=== PATIENT | male | born 1955 | race Caucasian/White ===

== ENCOUNTER 2022-01-20 22:44 | Outpatient (CLI) | payer MEDICARE, OTHER | END 2022-01-20 23:59 | disposition critical access hospital (66) | LOC: EMS 22:44 | DX: S09.90XA Unspecified injury of head, initial encounter (principal); R41.0 Disorientation, unspecified; W01.198A Fall on same level from slipping, tripping and stumbling with subsequent striking against other object, initial encounter; Y92.009 Unspecified place in unspecified non-institutional (private) residence as the place of occurrence of the external cause | CPT/HCPCS: A0425; A0427 ==

== ENCOUNTER 2022-01-20 22:57 | Emergency (ER) | payer MEDICARE, OTHER ==
--- NOTE | 2022-01-20 23:40 | ED Physician Documentation ---
PD HPI HEAD INJURY - Stated complaint Stated Complaint: GLF/HEAD INJ - Chief complaint Chief Complaint: Trauma Hd/Nk - History obtained from History obtained from: Patient, EMS - Additional information Additional information: Patient is a 67-year-old male with a history significant for diabetes, atrial fibrillation on Eliquis presenting for evaluation after head injury. Patient was at home with his and had gotten up to open the door to let the dogs back and when he fell backwards hitting his head on a windowsill. Per his he had 1 minute of LOC.There was no seizure activity. EMS was activated. Patient denies pain or injury. He did admit to consuming half a bottle of wine tonight which per his is normal for him. Patient denies ever having withdrawal symptoms when he has not consumed alcohol.He reports being compliant with his medications although he is unsure if he has had his evening dose of medications.Patient denies headache, chest pain, difficulty breathing. Review of Systems Constitutional: denies: Fever Nose: denies: Congestion Cardiac: denies: Chest pain / pressure, Palpitations Respiratory: denies: Dyspnea, Cough GI: denies: Abdominal Pain, Vomiting : denies: Dysuria Skin: denies: Rash Musculoskeletal: denies: Neck pain Neurologic: reports: Syncope, Head injury. denies: Headache PD PAST MEDICAL HISTORY - Past Medical History Past Medical History: Yes Cardiovascular: Congestive heart failure, Hypertension, High cholesterol, Atrial fibrillation Endocrine/Autoimmune: Type 2 diabetes - Allergies Allergies/Adverse Reactions: Allergies Allergy/AdvReac Type Severity Reaction Status Date / Time No Known Drug Allergies Allergy Verified 01/20/22 23:04 - Social History Does the pt smoke?: No Smoking Status: Never smoker Does the pt drink ETOH?: Yes ETOH Use: Wine PD ED PE NORMAL - General General: Alert and oriented X 3, No acute distress, Well developed/nourished - HEENT HEENT: Atraumatic, PERRL, EOMI, Moist mucous membranes - Neck Neck: Supple, no meningeal sign, No bony TTP. No: C-Spine cleared by NEXUS criteria (Due to reports of alcohol use) - Cardiac Cardiac: No murmur, Strong equal pulses, Other (Irregularly irregular) - Respiratory Respiratory: No respiratory distress, Clear bilaterally - Abdomen Abdomen: Normal bowel sounds, Soft, Non tender - Back Back: No spinal TTP - Derm Derm: Normal color, Warm and dry - Extremities Extremities: No edema, No calf tenderness / cord - Neuro Neuro: Alert and oriented X 3, rag boiler 2-12 intact, No motor deficit, Normal speech Eye Opening: Spontaneous Motor: Obeys Commands Verbal: Oriented GCS Score: 15 - Psych Psych: Normal mood, Normal affect Results - Vitals Vitals: Vital Signs - 24 hr 01/20/22 01/20/22 01/21/22 23:04 23:40 00:03 Temperature 36.6 C Heart Rate 108 H 110 H Heart Rate [ 149 H Sitting] Heart Rate [ Standing] Heart Rate [ 107 H Supine] Respiratory 19 16 Rate Blood Pressure 136/87 H 136/87 H Blood Pressure 139/98 H [Sitting] Blood Pressure [Standing] Blood Pressure 149/91 H [Supine] O2 Saturation 95 98 01/21/22 01/21/22 01/21/22 00:04 00:10 00:30 Temperature Heart Rate 108 H 103 H Heart Rate [ Sitting] Heart Rate [ 136 H Standing] Heart Rate [ Supine] Respiratory 19 18 Rate Blood Pressure 126/81 H 132/75 H Blood Pressure [Sitting] Blood Pressure 136/82 H [Standing] Blood Pressure [Supine] O2 Saturation 96 96 01/21/22 01:07 Temperature Heart Rate 103 H Heart Rate [ Sitting] Heart Rate [ Standing] Heart Rate [ Supine] Respiratory 18 Rate Blood Pressure 126/93 H Blood Pressure [Sitting] Blood Pressure [Standing] Blood Pressure [Supine] O2 Saturation 95 Oxygen O2 Source Room air - EKG (time done) 1209 Rate: Rate (enter#) (103) Rhythm: Atrial fibrillation Riddle: Normal Intervals: RBBB Ischemia: No: ST elevation c/w ischemia Compare to prior EKG: Old EKG unavailable Computer interpretation: Agree with computer - Labs Labs: Laboratory Tests 01/20/22 01/20/22 23:03 23:03 WBC 6.8 RBC 4.40 L Hgb 15.4 Hct 46.7 MCV 106.1 H MCH 35.0 H MCHC 33.0 RDW 13.5 Plt Count 253 MPV 10.8 Neut # (Auto) 4.0 Lymph # (Auto) 1.8 Kimball # (Auto) 0.8 Eos # (Auto) 0.2 Baso # (Auto) 0.1 Absolute Nucleated RBC 0.00 Nucleated RBC % 0.0 Sodium 134 L Potassium 4.0 Chloride 100 L Carbon Dioxide 20 L Anion Gap 14.0 H BUN 23 H Creatinine 0.9 Estimated GFR (MDRD) 84 L Glucose 227 H Calcium 9.0 Total Bilirubin 0.7 AST 23 ALT 20 Alkaline Phosphatase 67 Total Protein 6.5 L Albumin 3.4 Globulin 3.1 Albumin/Globulin Ratio 1.1 PD MEDICAL DECISION MAKING - ED course Complexity details: reviewed results, re-evaluated patient, d/w patient, d/w family ED course: Patient presenting for evaluation after a ground-level fall with head injury and brief LOC. Patient is on blood thinners.Clinically, patient does not appear intoxicated but does admit to alcohol use this evening. CT head and cervical spine were obtained with no acute findings. EKG with A. fib at whichPatient has a history of. Labs also reviewed. Patient denies symptoms to suggest ACS Or pulmonary embolism. No signs of stroke or seizure. Patient was able to ambulate At his baseline. He was encouraged to limit his alcohol use and have close follow-up with his primary care doctor and home economics extension worker. He is aware of return precautions. Departure - Departure Disposition: 01 Home, Self Care Clinical Impression: Head injury, closed, with brief LOC, Chronic atrial fibrillation, Alcohol use Condition: Stable Instructions: ED Head Injury Closed Comments: Matt - You were evaluated after a head injury and fainting. You had a CT scan of your head and your neck done which fortunately did not show any internal injuries.Your EKG shows that you are in atrial fibrillation. At times your heart rate is elevated but appears to be within normal limits when you are resting. Please try and limit your alcohol use as this can cause your atrial fibrillation to be out of control. Please also be sure to take all of your medications as prescribed. Please check your medication box when you go home to make sure you have taken your evening doses. Please be cautious when moving around especially in the setting of alcohol use as it can cause you to be more unsteady. Please have close follow-up with your home economics extension worker and primary care doctor. If it anytime you have any worsening symptoms please return to the emergency department. Discharge Date/Time: 01/21/22 01:17
--- NOTE | 2022-01-21 | CT Report ---
PROCEDURE: HEAD WO INDICATIONS: trauma on eliquis TECHNIQUE: Noncontrast 5 mm thick angled axial sections acquired from the foramen magnum to the vertex. For rad iation dose reduction, the following was used: automated exposure control, adjustment of mA and/or k V according to patient size. COMPARISON: None. FINDINGS: Image quality: Excellent. CSF spaces: There is mild cerebral volume loss with prominence of the ventricles and sulci. Basal ci sterns are patent. There is a small right choroidal fissure cyst Brain: No intracranial hemorrhage, mass, or mass effect. Sloan-white matter interface is preserved. T here are subcortical and periventricular white matter hypodensities consistent with mild chronic smal l vessel ischemic changes. Skull and face: Calvarium and visualized facial bones are intact, without suspicious lesions. Sinuses: Visualized sinuses and mastoids are clear. IMPRESSION: 1. No acute intracranial abnormality. 2. Mild cerebral volume loss and chronic white matter small vessel ischemic changes. Reviewed by: Everton Collier MD on 01/21/2022 12:02 AM PDT Approved by: Everton Collier MD on 01/21/2022 12:02 AM PDT Station ID: [id number]
--- NOTE | 2022-01-21 00:02 | CT Report ---
PROCEDURE: CERVICAL SPINE WO INDICATIONS: trauma/etoh TECHNIQUE: Noncontrast 3 mm thick sections acquired from the skull base to the T4 level. Sagittal and coronal r eformats were then constructed. For radiation dose reduction, the following was used: automated exp osure control, adjustment of mA and/or kV according to patient size. COMPARISON: None. FINDINGS: Image quality: Excellent. Bones: No fractures or subluxation. . There is straightening of the cervical lordosis with anteroli sthesis demonstrated at C3-C4. Multilevel degenerative disc disease demonstrated including moderate t o severe degeneration at C5-C6. There is moderate multilevel facet arthropathy throughout the cervica l spine Visualized superior ribs are intact. Soft tissues: Prevertebral soft tissues are normal in thickness. No paravertebral hematomas. No ap ical pneumothoraces. IMPRESSION: 1. No acute fractures or subluxation. 2. Multilevel degenerative changes of the cervical spine as described. Reviewed by: Everton Collier MD on 01/21/2022 12:04 AM PDT Approved by: Everton Collier MD on 01/21/2022 12:04 AM PDT Station ID: [id number]
[2022-01-21 00:03] LABS: BASOPHILS # (AUTO) 0.1 10^3/uL (0.0-0.1); BASOPHILS % (AUTO) 1.3 %; EOSINOPHILS # (AUTO) 0.2 10^3/uL (0.0-0.7); EOSINOPHILS % (AUTO) 3.1 %; HCT - HEMATOCRIT 46.7 % (42.0-52.0); HGB - HEMOGLOBIN 15.4 g/dL (14.0-18.0); LYMPHOCYTES # (AUTO) 1.8 10^3/uL (1.5-3.5); LYMPHOCYTES % (AUTO) 25.6 %; MEAN CORPUSCULAR VOLUME 106.1 fL (80.0-94.0); MEAN PLATELET VOLUME 10.8 fL (7.4-11.4); MONOCYTES # (AUTO) 0.8 10^3/uL (0.0-1.0); NEUTROPHILS % (AUTO) 58.4 %; PLT - PLATELET COUNT 253 10^3/uL (130-450); RED CELL DISTRIBUTION WIDTH 13.5 % (12.0-15.0); WHITE BLOOD COUNT 6.8 x10^3/uL (4.8-10.8)
[2022-01-21 00:14] LABS: ALBUMIN 3.4 g/dL (3.2-5.5); ALBUMIN/GLOBULIN RATIO 1.1 (1.0-2.2); BILIRUBIN,TOTAL 0.7 mg/dL (0.2-1.0); CREATININE 0.9 mg/dL (0.6-1.2); TOTAL PROTEIN 6.5 g/dL (6.7-8.2)
[2022-01-21] MEDS ORDERED: SODIUM CHLORIDE 0.9% 500 ML IV STA (00:22)
[2022-01-21 01:09] VITALS: BP 126/93
== END 2022-01-21 01:17 | disposition home or self-care (01) ==
LOC: ED 22:57
DX: S06.891A Other specified intracranial injury with loss of consciousness of 30 minutes or less, initial encounter (principal); W18.39XA Other fall on same level, initial encounter; W22.09XA Striking against other stationary object, initial encounter; Y93.89 Activity, other specified; I48.20 Chronic atrial fibrillation, unspecified; Z79.01 Long term (current) use of anticoagulants
CPT/HCPCS: 36415; 80053; 85025; 93005; 96360; 99284

== ENCOUNTER 2023-12-12 | Outpatient (CLI) | payer MEDICARE, OTHER | END 2023-12-12 00:30 | disposition critical access hospital (66) | LOC: EMS | DX: R22.0 Localized swelling, mass and lump, head (principal); R51.9 Headache, unspecified; W18.39XA Other fall on same level, initial encounter; Y92.098 Other place in other non-institutional residence as the place of occurrence of the external cause; Z79.01 Long term (current) use of anticoagulants; F10.90 Alcohol use, unspecified, uncomplicated | CPT/HCPCS: A0425; A0429 ==

== ENCOUNTER 2023-12-12 00:17 | Emergency (ER) | payer MEDICARE, OTHER ==
--- NOTE | 2023-12-12 00:31 | ED Physician Documentation ---
PD HPI HEAD INJURY - Stated complaint Stated Complaint: GLF - Chief complaint Chief Complaint: General - History obtained from History obtained from: Patient - Additional information Additional information: BIBA. HPI from EMS and patient. 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 The chair gave way, causing patient to fall forward. He struck his head on something although he is not sure on what. The blow was to his left forehead/left supraorbital ridge. However, patient denies both generalized headache as well as any focal pain. Furthermore, the patient denies visual changes, weakness/numbness, confusion, neck pain. The patient's medications include Eliquis which he takes for atrial fibrillation. Review of Systems Eyes: denies: Loss of vision, Decreased vision Musculoskeletal: reports: Reviewed and negative Neurologic: reports: Head injury. denies: Generalized weakness, Focal weakness, Numbness, Near syncope, Syncope, Confused, Altered mental status, Headache, LOC PD PAST MEDICAL HISTORY - Past Medical History Cardiovascular: Congestive heart failure, Hypertension, High cholesterol, Atrial fibrillation Endocrine/Autoimmune: Type 2 diabetes - Allergies Allergies/Adverse Reactions: Allergies Allergy/AdvReac Type Severity Reaction Status Date / Time lisinopril AdvReac Respiratory Verified 12/12/23 00:28 - Social History Does the pt smoke?: No Smoking Status: Never smoker Does the pt drink ETOH?: Yes PD ED PE NORMAL - Vitals Vital signs reviewed: Yes - General General: Alert and oriented X 3, No acute distress, Well developed/nourished - HEENT HEENT: PERRL, EOMI, Other (trace left supraorbital swelling and erythema without bony tenderness nor obvious deformity) - Cardiac Cardiac: No murmur - Respiratory Respiratory: No respiratory distress, Clear bilaterally - Neuro Neuro: Alert and oriented X 3, electronics processing supervisor 2-12 intact, No motor deficit, No sensory deficit, Normal speech Eye Opening: Spontaneous Motor: Obeys Commands Verbal: Oriented GCS Score: 15 PD ED PE EXPANDED - Cardiac Cardiac: Regular Rate, Irregularly irregular Results - Vitals Vitals: Vital Signs - 24 hr 12/12/23 00:23 Temperature 36 C L Heart Rate 100 Respiratory 20 Rate Blood Pressure 129/92 H O2 Saturation 98 Oxygen O2 Source Room air - Rads (name of study) CTH Relevant Findings:: Prelim report reviewed, See rad report PD Medical Decision Making - ED course Complexity details: reviewed results, re-evaluated patient, considered differential, d/w patient ED course: Patient is in NAD and minimal findings on exam. However, he describes head injury in the setting of taking Eliquis (for atrial fibrillation), and thus a CT head is undertaken. No concerning nor diagnostic findings on the CT scan of the head. On reevaluation, I discussed the CT results with the patient. He remains AAOx3 and in NAD. Return precautions are discussed prior to discharge. Departure - Departure Disposition: 01 Home, Self Care Clinical Impression: Head injury Condition: Good Instructions: ED Head Injury Closed Sleep Mon Comments: There were no abnormalities on the CT scan of your head. No further testing from an emergency perspective is indicated at this time. Return to the emergency department if you develop any concerning signs/symptoms (such as severe headache, visual changes, numbness/weakness, confusion/altered mental status).
--- NOTE | 2023-12-12 01:15 | CT Report ---
PROCEDURE: Head CT without contrast INDICATIONS: fall, head injury, takes eliquis TECHNIQUE: Noncontrast 4.5 mm thick angled axial sections acquired from the foramen magnum to the vertex. For r adiation dose reduction, the following was used: automated exposure control, adjustment of mA and/or kV according to patient size. COMPARISON: Prior head CT 01/20/2022 reviewed.. FINDINGS: Image quality: Excellent. CSF spaces: Basal cisterns are patent. No extra-axial fluid collections. Ventricles are normal in size and shape. Brain: No midline shift. No intracranial masses or hemorrhage. Sloan-white matter interface is norm al. Skull and face: Calvarium and visualized facial bones are intact, without suspicious lesions. Sinuses: Visualized sinuses and mastoids are clear. IMPRESSION: No acute intracranial pathology. Reviewed by: Ray Stover MD on 12/12/2023 1:13 AM PDT Approved by: Ray Stover MD on 12/12/2023 1:13 AM PDT Station ID: [id number]
[2023-12-12 02:06] VITALS: BP 121/90; O2SAT 91
== END 2023-12-12 01:57 | disposition home or self-care (01) ==
LOC: EDUNIT# → EDSEX → ED 00:17
DX: S09.90XA Unspecified injury of head, initial encounter (principal); W07.XXXA Fall from chair, initial encounter; Y92.009 Unspecified place in unspecified non-institutional (private) residence as the place of occurrence of the external cause; I48.91 Unspecified atrial fibrillation; Z79.01 Long term (current) use of anticoagulants; I10 Essential (primary) hypertension; E11.9 Type 2 diabetes mellitus without complications
CPT/HCPCS: 99283; 99284

== ENCOUNTER 2024-01-21 10:27 | Outpatient (CLI) | payer MEDICARE, OTHER ==
--- NOTE | 2024-01-21 11:10 | Sleep Patient Instructions ---
Sleep Center Visit Summary - Patient Visit Information Reason for Visit: Initial consult for evaluation of sleep disordered breathing and other sleep issues. - Patient Instructions Instructions Attached: Sleep Study Additional Instructions: You will be completing a sleep study, either an in-lab polysomnography (PSG) or home sleep study (HST). You will follow-up in the sleep care office after the sleep study is completed to hear the results and talk about therapy, if needed. You will be called by our office staff to schedule this appointment, but you may contact us with any questions. - Clinic Information Contact: [facility] [address] [place] [address] [email or web address] T: [phone]
--- NOTE | 2024-01-21 11:14 | SLEEP CARE CONSULTATION ---
Information from patient questionnaire entered by Mani Toledo. I have reviewed and concur with the information entered by Mani Toledo. This document represents the service I personally performed and the decisions made by me, Danyelle Bah ARNP. History of Present Illness Service Date and Time: 01/21/2024 1027 Reason for Visit: New patient Chief Complaint: reports: Unrefreshed sleep, Excessive daytime sleepiness, Fatigue, Frequent awakenings at night Date of Onset: Last 6 months Usual bedtime: 11:30 Time it takes to fall asleep: 30 to 60 minutes Snores at night: Yes Observed to quit breathing while asleep: Yes Sleeps alone due to snoring: No Number of times waking at night: 4 + times Reasons for waking at night: reports: Pain, Bathroom. denies: Choking, Snoring, Gasping for air Toss, Turn, or Twitch while sleeping: Yes Recalls having dreams: Yes Usually gets out of bed at: 10:00 Feels refreshed in the morning: No Morning headache: No Sleepy or fatigued during the day: Yes Ever fallen asleep while driving: No Takes day naps: Yes (2-3 times a week, about a 1-2 hours) Dreams during day naps: No Prior sleep studies: Yes Year and Where: Late at [facility] Additional HPI information: I had the pleasure of seeing THOMAS MANZANO today regarding the possibility of him having a sleep disorder. His current complaints are daytime sleepiness, fatigue, frequent night awakenings and unrefreshed sleep. He says he is tired all the time. He says he snores occasionally and his has noticed that he stops breathing at night. He says his daytime fatigue has been worse in the last 6 months. He says many years ago he was diagnosed with sleep apnea and given CPAP to use. He has not used his CPAP for 6-7 years because he did not li ke the mask or tubing. He felt it was a hassle at the time. He returns because of the increase in daily fatigue, memory issues and at the request of his . He says he is ready to give the CPAP another try. - Parasomnia Symptoms Ever been unable to move upon waking from sleep: No Walks in sleep: No Talks in sleep: No Ever acted out dreams in sleep: No Ever felt weak in the knees when startled or emotional: No Bothered by creepy, crawly, restless sensations in legs: Yes (feels occasionally like he needs to move legs when in bed) Problems with memory or concentration: Yes ("I'm old", worse in last 6 months) Subjective Initial [place] Sleepiness Scale score: 9 (in 2023) Past Medical History Past Medical History: reports: Hypertension, Congestive Heart Failure, Diabetes, Arthritis, Arrythmia (Afib), Depression, Other (High blood pressure, AFIB; prostatectomy 15 yrs ago) Social History The patient is retired. Patient is and lives in [place]. Have you smoked in the past 12 months: No Cigarettes per day (20/pack): 20 Years of smokin Quit date: 2018 Smoking Pack Years: 20.0 Alcohol use: Yes Alcohol amount and frequency: Bottle of wine daily Caffeine use: Yes Caffeine amount and frequency: Cup of coffee daily Family History Family history of sleep disordered breathing: No Allergies and Home Medications Known drug allergies: Yes (as listed) Drug allergies reviewed: Yes Home medication list reviewed: Yes (as listed) Allergy and home medication list: Allergies lisinopril Adverse Reaction (Verified 01/19/24 10:59) Respiratory Home Medications Medication Instructions Recorded Confirmed Last Taken Type Apixaban [Eliquis] 1 tab PO BID 12/12/23 01/21/24 Unknown History Atorvastatin Calcium 1 tab PO DAILY PM 12/12/23 01/21/24 Unknown History Doxazosin Mesylate [Cardura] 1 tab PO DAILY 12/12/23 01/21/24 Unknown History Furosemide [Lasix] 1 tab PO BID 12/12/23 01/21/24 Unknown History Metoprolol Succinate 1 tab PO BID 12/12/23 01/21/24 Unknown History Venlafaxine HCl [Effexor Xr] 1 cap PO DAILY 12/12/23 01/21/24 Unknown History hydrALAZINE [Apresoline] 1 tab PO BID 12/12/23 01/21/24 Unknown History oxyBUTYnin chloride [Oxybutynin 1 tab PO DAILY 12/12/23 01/21/24 Unknown History Chloride ER] Review of Systems Weight gain over past 5 years: 5 Cardiovascular: reports: high blood pressure, irregular heart rate or pulse, leg or foot swelling, other (AFIB for last 5 + years) Respiratory: reports: shortness of breath Urinary: reports: incontinence, urgency, other (Had prostate removed aproximately 15 years ago) Neurological: reports: gait or balance problems Psychiatric: reports: depression Ear/Nose/Throat: reports: sinus problems, wisdom teeth removed. denies: tonsillectomy Musculoskeletal: reports: joint pain (/stiffness), back pain Immunologic: reports: allergies to food or environment Physical Exam Vital signs obtained and entered by: Danyelle Pina NP Blood Pressure: 142/98 Cuff size: regular (right arm) Heart Rate: 99 O2 Saturation: 96 Height: 5 ft 9 in Weight: 249 lb Body Mass Index: 36.7 BMI Classification: Obese Neck circumference: 19 Nostrils: patent to airflow Mouth and throat: narrow oropharynx Soft palate: long Hard palate: normal Uvula: normal Uvula visualization: 25% Mallampati Class III Tongue: enlarged in size with teeth hanna on lateral edges Tonsils: small Neck: normal w/o lymphadenopathy or thyromegaly Heart: regular rate and rhythm Lungs: clear bilaterally Impression and Plan 1. Suspected Obstructive Sleep Apnea-Hypopnea Syndrome, as previously diagnosed and as suggested by a history of loud and irregular snoring, observed cessation of breath while asleep, frequent awakening during the night, unrefreshed sleep, cognitive impairment, and excessive daytime sleepiness. I recommend proceeding to polysomnography to confirm the diagnosis and to assess severity. If the patient has significant sleep disordered breathing, a manual CPAP titration study will also be performed to find the optimal treatment pressure. I informed the patient of what the sleep studies involve and after some discussion, obtained agreement to proceed. The pathophysiology of obstructive sleep apnea- hypopnea syndrome was discussed with the patient and health risks of cardiovascular and cerebrovascular disease if not treated. Risks of drowsy driving discussed in detail and patient advised to avoid long distance driving and to supervisor pullet farm at the first sign of drowsiness. Patient agreed to plan. * Schedule polysomnography. * Avoid long distance driving or driving when feeling sleepy. * Avoid alcohol, sedative and muscle relaxant around bedtime. * Attempt to lose weight. * Review instructions provided by trained office staff on how to prepare for the sleep study. * Return for follow-up after sleep study completed. Counseling Topics: Weight loss health impact Plan: PSG and followup Visit Type: In Office Time Spent with Patient (minutes): 30 Provider Statement: I spent 100% of the Face to Face Visit with the patient with greater than 50% spent counseling the patient and coordination of care.
[2024-01-21 11:15] VITALS: BP 142/98; O2SAT 96
== END 2024-01-21 10:28 | disposition home or self-care (01) ==
LOC: SC 10:27
PROVIDERS: ATTEND Nurse Practitioner Family
DX: G47.33 Obstructive sleep apnea (adult) (pediatric) (principal); Z87.891 Personal history of nicotine dependence; E66.9 Obesity, unspecified; Z68.36 Body mass index [BMI] 36.0-36.9, adult
CPT/HCPCS: 99203; G0463; 36415; 99212

== ENCOUNTER 2024-01-25 17:43 | Emergency (ER) | payer MEDICARE, OTHER ==
--- NOTE | 2024-01-25 18:40 | ED Physician Documentation ---
History of Present Illness - Stated complaint Stated Complaint: AFIB - Chief complaint Chief Complaint: Cardiac - Additonal information Additional information: 69-year-old male with known history of A-fib and CHF presents to the emergency department for concerns of A-fib. Patient has no concerning signs or symptoms no shortness of breath no chest pain he went to establish care with a new primary care provider today [place] and patient was found to be in A-fib which led his primary care provider to send her to the emergency department. Patient says that he feels at baseline no nausea vomiting no chest pain or shortness of breath and no other concerning symptoms. Patient says that he was unaware that he was in A-fib and unaware when he went into A-fib. He is anticoagulated on Eliquis for A-fib. PD PAST MEDICAL HISTORY - Past Medical History Past Medical History: Yes Cardiovascular: Congestive heart failure, Hypertension, High cholesterol, Atrial fibrillation Respiratory: None Neuro: None Endocrine/Autoimmune: Type 2 diabetes GI: None : Nocturia, Other HEENT: None Psych: Depression Musculoskeletal: Chronic back pain Derm: None Other Past Medical History: prostate cancer - Past Surgical History Past Surgical History: Yes Ortho: Rotator cuff repair, Carpal Tunnel surgery - Present Medications Home Medications: Ambulatory Orders Medication Instructions Recorded Confirmed Apixaban [Eliquis] 1 tab PO BID 12/12/23 01/25/24 Atorvastatin Calcium 40 mg PO DAILY PM 12/12/23 01/25/24 Doxazosin Mesylate [Cardura] 2 mg PO DAILY 12/12/23 01/25/24 Furosemide [Lasix] 40 mg PO BID 12/12/23 01/25/24 Metoprolol Succinate 100 mg PO BID 12/12/23 01/25/24 Venlafaxine HCl [Effexor Xr] 150 mg PO DAILY 12/12/23 01/25/24 hydrALAZINE [Apresoline] 25 mg PO BID 12/12/23 01/25/24 oxyBUTYnin chloride [Oxybutynin 5 mg PO DAILY 12/12/23 01/25/24 Chloride ER] - Allergies Allergies/Adverse Reactions: Allergies Allergy/AdvReac Type Severity Reaction Status Date / Time lisinopril AdvReac Respiratory Verified 01/25/24 17:46 - Social History Does the pt smoke?: No Smoking Status: Former smoker Does the pt drink ETOH?: Yes ETOH Use: Wine Does the pt have substance abuse?: No - Immunizations Immunizations are current?: Yes - POLST Patient has POLST: No PD ED PE NORMAL - Vitals Vital signs reviewed: Yes - General General: Alert and oriented X 3, No acute distress, Well developed/nourished - HEENT HEENT: Atraumatic - Cardiac Cardiac: RRR, Strong equal pulses, Other (Irregularly irregular) - Respiratory Respiratory: No respiratory distress, Clear bilaterally - Extremities Extremities: No edema, No calf tenderness / cord - Psych Psych: Normal mood, Normal affect Results - Vitals Vitals: Vital Signs - 24 hr 01/25/24 01/25/24 17:47 18:50 Temperature 36.5 C 36.5 C Heart Rate 100 88 Respiratory 18 16 Rate Blood Pressure 138/99 H 128/88 H O2 Saturation 97 98 Oxygen O2 Source Room air PD Medical Decision Making - ED course ED course: 69-year-old male presents emergency department for known A-fib anticoagulated on Eliquis. Patient is completely asymptomatic no chest pain or shortness of breath no calf pain or tenderness. I am not entirely sure why patient is here but he is told to come in by his primary care provider. I do not believe there is any further emergent workup indicated at this time as he is already anticoagulated and he is rate controlled. Return precautions given to patient and his . Departure - Departure Disposition: 01 Home, Self Care Clinical Impression: A-fib Qualifiers: Atrial fibrillation type: longstanding persistent Qualified Code(s): I48.11 - Longstanding persistent atrial fibrillation Instructions: ED Afib Comments: Thank you for trusting us with your care. As we discussed it does know that you are already in A-fib and that you are anticoagulated on Eliquis for your A-fib. There is no emergent indication for you to be in the emergency department at this point in time. If start to develop any chest pain, shortness of breath, or any other concerning cardiac symptoms please come back to the emergency departme nt for reevaluation. Forms: PCP List Discharge Date/Time: 01/25/24 18:50
[2024-01-25 19:02] VITALS: BP 128/88; O2SAT 98
== END 2024-01-25 18:50 | disposition home or self-care (01) ==
LOC: ED 17:43
DX: I48.11 Longstanding persistent atrial fibrillation (principal); I11.0 Hypertensive heart disease with heart failure; I50.9 Heart failure, unspecified; E78.00 Pure hypercholesterolemia, unspecified; E11.9 Type 2 diabetes mellitus without complications; Z79.01 Long term (current) use of anticoagulants; Z79.899 Other long term (current) drug therapy; Z87.891 Personal history of nicotine dependence
CPT/HCPCS: 93005; 99283

== ENCOUNTER 2024-01-31 10:42 | Outpatient (CLI) | payer MEDICARE, OTHER ==
[2024-01-31 10:51] LABS: BASOPHILS # (AUTO) 0.1 10^3/uL (0.0-0.1); BASOPHILS % (AUTO) 0.9 %; EOSINOPHILS # (AUTO) 0.3 10^3/uL (0.0-0.7); EOSINOPHILS % (AUTO) 3.4 %; HCT - HEMATOCRIT 49.5 % (42.0-52.0); HGB - HEMOGLOBIN 16.5 g/dL (14.0-18.0); LYMPHOCYTES # (AUTO) 1.5 10^3/uL (1.5-3.5); LYMPHOCYTES % (AUTO) 17.2 %; MEAN CORPUSCULAR HEMOGLOBIN 34.8 pg (27.0-31.0); MEAN CORPUSCULAR HGB CONC 33.3 g/dL (32.0-36.0); MEAN CORPUSCULAR VOLUME 104.4 fL (80.0-94.0); MEAN PLATELET VOLUME 9.8 fL (7.4-11.4); MONOCYTES % (AUTO) 11.2 %; NEUTROPHILS # (AUTO) 5.8 10^3/uL (1.5-6.6); PLT - PLATELET COUNT 260 10^3/uL (130-450); RED BLOOD COUNT 4.74 10^6/uL (4.70-6.10); RED CELL DISTRIBUTION WIDTH 13.2 % (12.0-15.0); WHITE BLOOD COUNT 8.6 x10^3/uL (4.8-10.8)
[2024-01-31 11:09] LABS: ALBUMIN 3.8 g/dL (3.2-5.5); ALBUMIN/GLOBULIN RATIO 1.3 (1.0-2.2); ALKALINE PHOSPHATASE 78 IU/L (42-121); ALT ALANINE AMINOTRANSFERASE 21 IU/L (10-60); AST ASPARTATE AMINOTRANSFERASE 22 IU/L (10-42); BILIRUBIN,TOTAL 0.7 mg/dL (0.2-1.0); BUN - BLOOD UREA NITROGEN 17 mg/dL (6-20); CALCIUM 9.3 mg/dL (8.5-10.3); CARBON DIOXIDE - CO2 31 mmol/L (21-32); CHLORIDE 102 mmol/L (101-111); CHOL/HDL RATIO 3.3 (<5.0); CHOLESTEROL 197 mg/dL; CREATININE 0.9 mg/dL (0.6-1.3); GFR - MDRD 83 (>89); GLUCOSE 131 mg/dL (74-104); HDL CHOLESTEROL 60 mg/dL; LDL CHOLESTEROL,CALCULATED 100 mg/dL; LDL/HDL RATIO 1.7 (<3.6); POTASSIUM 4.5 mmol/L (3.5-4.5); SODIUM 136 mmol/L (135-145); TOTAL PROTEIN 6.8 g/dL (6.4-8.9); TRIGLYCERIDES 186 mg/dL (48-352); VLDL CHOLESTEROL 37 mg/dL
[2024-01-31 11:21] LABS: THYROID STIMULATING HORMONE 1.28 uIU/mL (0.34-5.60)
== END 2024-01-31 10:43 | disposition home or self-care (01) ==
LOC: LAB 10:42
PROVIDERS: ATTEND Nurse Practitioner Family
DX: I10 Essential (primary) hypertension (principal); Z85.46 Personal history of malignant neoplasm of prostate; G47.33 Obstructive sleep apnea (adult) (pediatric); I48.91 Unspecified atrial fibrillation
CPT/HCPCS: 36415; 80053; 80061; 83721; 84443; 85025

== ENCOUNTER 2024-02-17 20:32 | Outpatient (CLI) | payer MEDICARE, OTHER | END 2024-02-17 20:33 | disposition home or self-care (01) | LOC: SC 20:32 | PROVIDERS: ATTEND Nurse Practitioner Family | DX: G47.33 Obstructive sleep apnea (adult) (pediatric) (principal); G47.61 Periodic limb movement disorder; I48.91 Unspecified atrial fibrillation | CPT/HCPCS: 95810 ==

== ENCOUNTER 2024-03-06 15:08 | Outpatient (CLI) | payer MEDICARE, OTHER ==
--- NOTE | 2024-03-06 15:10 | SLEEP CARE CONSULTATION ---
Information from patient questionnaire entered by Marya Jalloh. I have reviewed and concur with the information entered by Marya Jalloh. This document represents the service I personally performed and the decisions made by me, Balbir Ellis MD, [facility]. History of Present Illness Service Date and Time: 03/06/2024 1500 Initial [place] Sleepiness Scale score: 9 Current [place] Sleepiness Scale score: 6 (03/06/24) Additional HPI information: Mr. Arteaga returned for follow up of the sleep study he had on 02-17-24. The polysomnography showed that the patient had poor sleep efficiency due to sleep onset insomnia. The sleep architecture was abnormal for sleep fragmentation and lack of REM sleep. Respiratory monitoring showed severe obstructive sleep apnea- hypopnea (AHI = 45.3) associated with frequent arousals, oxyhemoglobin desaturation and mild hypoxia (jose oxygen saturation of 82%). The respiratory events occurred independently of sleep stage and body position (supine AHI = 76.5; non-supine = 39.54). Snore was light to loud in intensity. There was severe periodic leg movement of sleep contributing to the sleep fragmentation. Cardiac rhythm was atrial fibrillation. No abnormal behavior (parasomnia) observed during the night. The patient was informed of these findings. I explained to him the pathophysiology behind obstructive sleep apnea. We then spent quite a bit of time discussing different treatment options. For mild obstructive sleep apnea, surgery and oral appliance are alternatives to nasal CPAP therapy but in moderate or severe cases, nasal CPAP is the most effective and reliable treatment. Weight loss in an obese individual is strongly recommended. After some discussion, he opted to use a CPAP again. He was first diagnosed 30 years ago and used CPAP for many years but quit because on inconvenience. He recalls significant improvement on the treatment. Sleep Study - Results Type of Sleep Study: Polysomnography (COMPLETED 02/17/24) Prior sleep studies: Yes Year and Where: Late at [facility] Allergies and Home Medications Drug allergies reviewed: Yes Home medication list reviewed: Yes Allergy and home medication list: Allergies lisinopril Adverse Reaction (Verified 01/25/24 17:46) Respiratory Review of Systems Review of systems same as previous: Yes (NO CHANGE) Physical Exam Vital signs obtained and entered by: MARYA Blair MA Height: 5 ft 8 in (PER PT) Weight: 347 lb (PER PT) Body Mass Index: 52.7 BMI Classification: Morbidly Obese Impression and Plan IMPRESSION: 1. Obstructive Sleep Apnea-Hypopnea Syndrome, severe, associated with mild hypoxemia and sleep fragmentation. Obviously this is the cause of the patients symptoms of unrefreshed sleep, and excessive daytime sleepiness. As mentioned above, the patient will return for a manual CPAP/BiPAP titration study. PLAN: 1. Schedule a manual CPAP/BiPAP titration study. 2. Attempt to lose weight and avoid alcohol consumption near bedtime. 3. Be careful with driving. 4. Return in one month for follow up. I will prescribe him the equipment after the study. Follow up with Sleep Care in: 1-2 months Visit Type: Telehealth Phone Patient Location: Home Location of Provider: Home Patient agrees and consents to this telehealth visit type: Yes Patient agrees to have their insurance billed: Yes Time Spent with Patient (minutes): 15 Provider Statement: I spent 100% of the Telehealth Phone Call with the patient with greater than 50% spent counseling the patient and coordination of care.
== END 2024-03-06 15:09 | disposition home or self-care (01) ==
LOC: SC 15:08
PROVIDERS: ATTEND Internal Medicine Pulmonary Disease
DX: G47.33 Obstructive sleep apnea (adult) (pediatric) (principal); E66.01 Morbid (severe) obesity due to excess calories; Z68.43 Body mass index [BMI] 50.0-59.9, adult
CPT/HCPCS: 99442

== ENCOUNTER 2024-04-28 20:54 | Outpatient (CLI) | payer MEDICARE, OTHER | END 2024-04-28 20:55 | disposition home or self-care (01) | LOC: SC 20:54 | PROVIDERS: ATTEND Internal Medicine Pulmonary Disease | DX: G47.33 Obstructive sleep apnea (adult) (pediatric) (principal); G47.61 Periodic limb movement disorder; I48.91 Unspecified atrial fibrillation | CPT/HCPCS: 95811 ==

== ENCOUNTER 2024-05-22 14:16 | Outpatient (CLI) | payer MEDICARE, OTHER ==
[2024-05-23 20:24] VITALS: BP 142/95; O2SAT 96
--- NOTE | 2024-05-23 20:24 | SLEEP CARE CONSULTATION ---
Information from patient questionnaire entered by Marya Jalloh. I have reviewed and concur with the information entered by Marya Jalloh. This document represents the service I personally performed and the decisions made by me, Balbir Ellis MD, [facility]. History of Present Illness Service Date and Time: 05/22/2024 1416 Initial [place] Sleepiness Scale score: 9 Additional HPI information: Mr. Arteaga returned for follow up of the manual CPAP/BiPAP titration study he had on 04-28-24. The polysomnography showed that CPAP was initiated at 5 cmH2O and titrated up to 10 cmH2O. CPAP at 9 cmH2O appeared to be optimal (AHI of 4.8 per hour on the pressure). There was supine sleep on the pressure. Oxygen saturation was 0.00%. Lower CPAP settings appeared adequate as well. The patient appeared to have tolerated positive airway pressure therapy fairly well. The patients sleep efficiency was reduced due to frequent awakenings during the night. The sleep architecture was abnormal for lack of REM sleep. There was severe periodic leg movement of sleep not associated with sleep fragmentation. Cardiac rhythm was atrial fibrillation. No abnormal behavior (parasomnia) observed during the night. Sleep Study - Results Type of Sleep Study: Polysomnography (COMPLETED 02/17/24 TITRATION 04/28/24) Prior sleep studies: Yes Year and Where: Late at [facility] Allergies and Home Medications Drug allergies reviewed: Yes Home medication list reviewed: Yes Allergy and home medication list: Allergies lisinopril Adverse Reaction (Verified 05/22/24 14:19) Respiratory Review of Systems Review of systems same as previous: Yes Physical Exam Vital signs obtained and entered by: MARYA Blair MA Blood Pressure: 142/95 (RIGHT ARM) Cuff size: regular Heart Rate: 99 O2 Saturation: 96 Height: 5 ft 8 in Weight: 249 lb 9.6 oz Body Mass Index: 37.9 BMI Classification: Obese Impression and Plan IMPRESSION: 1. Obstructive Sleep Apnea-Hypopnea Syndrome, severe, associated with mild hypoxemia and sleep fragmentation. Obviously this is the cause of the patients symptoms of unrefreshed sleep, and excessive daytime sleepiness. Based on his recent titration study, I will start him on an autoCPAP set between 5 and 10 cmH2O. PLAN: 1. Prescription made for an autoCPAP, heated humidifier, and related supplies through [employer] [facility] [employer] 2. Attempt to lose weight and avoid alcohol consumption near bedtime. 3. Be careful with driving. 4. Return for follow up after one month of using the CPAP. Counseling Topics: Weight control Prescriptions: Auto CPAP Follow up with Sleep Care in: 1-2 months Visit Type: In Office Time Spent with Patient (minutes): 15 Provider Statement: I spent 100% of the Face to Face Visit with the patient with greater than 50% spent counseling the patient and coordination of care.
== END 2024-05-22 14:17 | disposition home or self-care (01) ==
LOC: SC 14:16
PROVIDERS: ATTEND Internal Medicine Pulmonary Disease
DX: G47.33 Obstructive sleep apnea (adult) (pediatric) (principal); E66.9 Obesity, unspecified; Z68.37 Body mass index [BMI] 37.0-37.9, adult
CPT/HCPCS: 99212; G0463

== ENCOUNTER 2024-06-05 15:24 | Outpatient (CLI) | payer MEDICARE, OTHER ==
[2024-06-05 15:50] LABS: BASOPHILS # (AUTO) 0.1 10^3/uL (0.0-0.1); BASOPHILS % (AUTO) 0.9 %; EOSINOPHILS # (AUTO) 0.1 10^3/uL (0.0-0.7); EOSINOPHILS % (AUTO) 1.4 %; HCT - HEMATOCRIT 47.1 % (42.0-52.0); HGB - HEMOGLOBIN 15.7 g/dL (14.0-18.0); LYMPHOCYTES # (AUTO) 1.5 10^3/uL (1.5-3.5); MEAN CORPUSCULAR HEMOGLOBIN 34.7 pg (27.0-31.0); MEAN CORPUSCULAR HGB CONC 33.3 g/dL (32.0-36.0); MEAN PLATELET VOLUME 10.2 fL (7.4-11.4); MONOCYTES % (AUTO) 11.1 %; NEUTROPHILS # (AUTO) 6.4 10^3/uL (1.5-6.6); NEUTROPHILS % (AUTO) 70.3 %; PLT - PLATELET COUNT 305 10^3/uL (130-450); RED BLOOD COUNT 4.53 10^6/uL (4.70-6.10); RED CELL DISTRIBUTION WIDTH 13.7 % (12.0-15.0); WHITE BLOOD COUNT 9.1 x10^3/uL (4.8-10.8)
[2024-06-05 15:57] LABS: ALBUMIN 4.1 g/dL (3.2-5.5); ALBUMIN/GLOBULIN RATIO 1.5 (1.0-2.2); ALKALINE PHOSPHATASE 76 IU/L (42-121); ALT ALANINE AMINOTRANSFERASE 16 IU/L (10-60); AST ASPARTATE AMINOTRANSFERASE 21 IU/L (10-42); BILIRUBIN,TOTAL 0.9 mg/dL (0.2-1.0); BUN - BLOOD UREA NITROGEN 20 mg/dL (6-20); CALCIUM 9.4 mg/dL (8.5-10.3); CARBON DIOXIDE - CO2 27 mmol/L (21-32); CHLORIDE 103 mmol/L (101-111); CHOL/HDL RATIO 3.3 (<5.0); CHOLESTEROL 207 mg/dL; CREATININE 0.9 mg/dL (0.6-1.3); GFR - MDRD 83 (>89); GLUCOSE 132 mg/dL (74-104); HDL CHOLESTEROL 63 mg/dL; LDL CHOLESTEROL,CALCULATED 99 mg/dL; LDL/HDL RATIO 1.6 (<3.6); POTASSIUM 4.2 mmol/L (3.5-4.5); SODIUM 138 mmol/L (135-145); TOTAL PROTEIN 6.8 g/dL (6.4-8.9); TRIGLYCERIDES 224 mg/dL; VLDL CHOLESTEROL 45 mg/dL
[2024-06-05 16:12] LABS: THYROID STIMULATING HORMONE 1.16 uIU/mL (0.34-5.60)
[2024-06-05 20:57] LABS: ESTIMATED AVERAGE GLUCOSE 131 mg/dL (70-100); HEMOGLOBIN A1c% 6.2 % (4.27-6.07)
== END 2024-06-05 15:25 | disposition home or self-care (01) ==
LOC: LAB 15:24
PROVIDERS: ATTEND Nurse Practitioner Family
DX: E11.65 Type 2 diabetes mellitus with hyperglycemia (principal); Z85.46 Personal history of malignant neoplasm of prostate; R42 Dizziness and giddiness
CPT/HCPCS: 36415; 80053; 80061; 82043; 82570; 83036; 83721; 84153; 84443; 85025

== ENCOUNTER 2024-06-07 14:56 | Outpatient (CLI) | payer MEDICARE, OTHER ==
[2024-06-07 15:36] LABS: CREATININE,URINE 123.5 mg/dL
== END 2024-06-07 14:57 | disposition home or self-care (01) ==
LOC: LAB.R 14:56
PROVIDERS: ATTEND Nurse Practitioner Family
DX: E11.65 Type 2 diabetes mellitus with hyperglycemia (principal)
CPT/HCPCS: 82043; 82570